=== PATIENT | male | born 1980 | race Caucasian/White ===

== ENCOUNTER 2017-06-04 20:53 | Emergency (ER) | payer OTHER ==
--- NOTE | 2017-06-04 21:04 | EDM.PDOC ---
ED HPI GENERAL MEDICAL PROBLEM - General Chief Complaint: General Stated Complaint: ALLERGIC REACTION TO MEDICATION Time Seen by Provider: 06/04/17 21:03 Source of Information: Reports: Patient History Limitations: Reports: No Limitations - History of Present Illness INITIAL COMMENTS - FREE TEXT/NARRATIVE: HISTORY AND PHYSICAL: History of present illness: Patient is a 37-year-old male who presents to the emergency room today with complaints of headache, decreased ability to concentrate, dry mouth, feeling "off" since starting a new medication, Venlafaxin 75mg once daily. This is a new medication to him and had not previously taken any antidepressants. Take this medication at around 8 AM. He did state he missed lunch and since that time had started to have the symptoms. He denies any fever, chills, chest pain or shortness of breath. Denies any abdominal pain, nausea, vomiting or diarrhea/constipation. Denies any alcohol or drug abuse. Review of systems: As per history of present illness and below otherwise all systems reviewed and negative. Past medical history: As per history of present illness and as reviewed below otherwise noncontributory. Surgical history: As per history of present illness and as reviewed below otherwise noncontributory. Social history: No reported history of drug or alcohol abuse. Family history: As per history of present illness and as reviewed below otherwise noncontributory. Physical exam: General: Well-developed and well-nourished 37-year-old male. Alert and oriented. Nontoxic appearing and in no acute distress. HEENT: Atraumatic, normocephalic, pupils equal and reactive bilaterally, negative for conjunctival pallor or scleral icterus, mucous membranes moist, throat clear, neck supple, nontender, trachea midline. No drooling or trismus noted. No meningeal signs Lungs: Clear to auscultation, breath sounds equal bilaterally, chest nontender. Heart: S1S2, regular rate and rhythm without overt murmur Abdomen: Soft, nondistended, nontender. Negative for masses or hepatosplenomegaly. Negative for costovertebral tenderness. Pelvis: Stable nontender. Genitourinary: Deferred. Rectal: Deferred. Skin: Intact, warm, dry. No lesions or rashes noted. Extremities: Atraumatic, negative for cords or calf pain. Neurovascular unremarkable. Neuro: Awake, alert, oriented. Cranial nerves II through XII unremarkable. Cerebellum unremarkable. Motor and sensory unremarkable throughout. Exam nonfocal. Notes: GCS 15, NIH 0. We did discuss risks versus benefits of doing a head CT. They declined at this time as he had had no recent injury, trauma or falls. Give him some IV fluids and medications for his migraine. States his headache has improved but he still has blurred vision and a "strange feeling in his head". He states he would like the head CT at this time. Lab work and head CT are normal. This was shared with the patient. Encouraged appropriate follow-up with his primary provider. Encouraged him to hold his Venlafaxin medication until he speaks with them. He voices understanding and agreeable to plan of care. They deny any further questions at this time. Diagnostics: CBC, CMP Therapeutics: IV fluid, Zofran, Toradol Impression: Adverse drug reaction Plan: 1. Please hold your Venlafaxin until you discuss your medication options with your primary care provider. 2. Follow up with your primary care provider as needed. Return to the ED as needed and as discussed. Definitive disposition and diagnosis as appropriate pending reevaluation and review of above. Onset: Today Duration: Hour(s): Location: Reports: Generalized Headache Pain Score (Numeric/FACES): 3 - Related Data Allergies Allergy/AdvReac Type Severity Reaction Status Date / Time Penicillins Allergy Rash Verified 06/04/17 21:05 Home Meds: Home Meds Venlafaxine HCl [Venlafaxine ER] 75 mg PO DAILY 06/04/17 [History] Past Medical History - Past Health History Medical/Surgical History: Denies Medical/Surgical History HEENT History: Reports: None Cardiovascular History: Reports: None Respiratory History: Reports: None Other Respiratory History: occasional smoker Gastrointestinal History: Reports: None Genitourinary History: Reports: Other (See Below) Other Genitourinary History: possible prostitis. left hydrocoele Endocrine/Metabolic History: Reports: Obesity/BMI 30+ Immunologic History: Reports: None Oncologic (Cancer) History: Reports: None - Infectious Disease History Infectious Disease History: Reports: None - Past Surgical History Head Surgeries/Procedures: Reports: None Social & Family History - Tobacco Use Smoking Status *Q: Current Some Day Smoker Years of Tobacco use: 15 Month/Year Tobacco Last Used: states a pack of cigarettes will last him 3 to 4 weeks Second Hand Smoke Exposure: No - Alcohol Use Days Per Week of Alcohol Use: 0 - Recreational Drug Use Recreational Drug Use: No ED ROS GENERAL - Review of Systems Review Of Systems: ROS reveals no pertinent complaints other than HPI. ED EXAM, GENERAL - Physical Exam Exam: See Below (See dictation) Course - Vital Signs Last Recorded V/S: Last Vital Signs Temp 98.2 F 06/04/17 21:01 Pulse 102 H 06/04/17 21:01 Resp 18 06/04/17 21:01 BP 155/99 H 06/04/17 21:01 Pulse Ox 97 06/04/17 21:01 - Orders/Labs/Meds Orders: Active Orders 24 hr Category Date Time Status Communication Order [RC] STAT Care 06/04/17 21:40 Active Head wo Cont [CT] Stat Exams 06/04/17 21:51 Ordered COMPREHENSIVE METABOLIC PN,CMP [CHEM] Stat Lab 06/04/17 21:28 Received Sodium Chloride 0.9% [Normal Saline] 1,000 ml Med 06/04/17 21:20 Active IV STAT Medication Orders Sodium Chloride (Normal Saline) 1,000 mls @ 999 mls/hr IV STAT ONE Stop: 06/04/17 22:20 Last Admin: 06/04/17 21:33 Dose: 999 mls/hr Labs: Laboratory Tests 06/04/17 Range/Units 21:28 WBC 7.81 (4.0-11.0) K/uL RBC 4.88 (4.50-5.90) M/uL Hgb 16.0 (13.0-17.0) g/dL Hct 44.1 (38.0-50.0) % MCV 90.4 (80.0-98.0) fL MCH 32.8 H (27.0-32.0) pg MCHC 36.3 (31.0-37.0) g/dL RDW Std Deviation 40.7 (28.0-62.0) fl RDW Coeff of Asa 12 (11.0-15.0) % Plt Count 191 (150-400) K/uL MPV 9.60 (7.40-12.00) fL Neut % (Auto) 49.6 (48.0-80.0) % Lymph % (Auto) 39.4 (16.0-40.0) % [place] % (Auto) 8.5 (0.0-15.0) % Eos % (Auto) 2.2 (0.0-7.0) % Baso % (Auto) 0.3 (0.0-1.5) % Neut # (Auto) 3.9 (1.4-5.7) K/uL Lymph # (Auto) 3.1 H (0.6-2.4) K/uL [place] # (Auto) 0.7 (0.0-0.8) K/uL Eos # (Auto) 0.2 (0.0-0.7) K/uL Baso # (Auto) 0.0 (0.0-0.1) K/uL Nucleated RBC % 0.0 /100WBC Nucleated RBCs # 0 K/uL Meds: Medications Generic Name Dose Route Start Last Admin Trade Name Freq PRN Reason Stop Dose Admin Sodium Chloride 1,000 mls @ 999 mls/hr 06/04/17 21:20 06/04/17 21:33 Normal Saline IV 06/04/17 22:20 999 mls/hr STAT ONE Administration Discontinued Medications Generic Name Dose Route Start Last Admin Trade Name Freq PRN Reason Stop Dose Admin Ketorolac Tromethamine 30 mg 06/04/17 21:20 06/04/17 21:34 Toradol IVPUSH 06/04/17 21:21 30 mg ONETIME ONE Administration Ondansetron HCl 4 mg 06/04/17 21:20 06/04/17 21:34 Zofran IVPUSH 06/04/17 21:21 4 mg ONETIME ONE Administration Departure - Departure Time of Disposition: 21:27 Disposition: Home, Self-Care 01 Clinical Impression: Adverse drug reaction Qualifiers: Encounter type: initial encounter Qualified Code(s): T88.7XXA - Unspecified adverse effect of drug or medicament, initial encounter - Discharge Information Referrals: PCP,None [Primary Care Provider] - Forms: ED Department Discharge Additional Instructions: The following information is given to patients seen in the emergency department who are being discharged to home. This information is to outline your options for follow-up care. We provide all patients seen in our emergency department with a follow-up referral. The need for follow-up, as well as the timing and circumstances, are variable depending upon the specifics of your emergency department visit. If you don't have a primary care physician on staff, we will provide you with a referral. We always advise you to contact your personal physician following an emergency department visit to inform them of the circumstance of the visit and for follow-up with them and/or the need for any referrals to a consulting specialist. The emergency department will also refer you to a specialist when appropriate. This referral assures that you have the opportunity for follow-up care with a specialist. All of these measure are taken in an effort to provide you with optimal care, which includes your follow-up. Under all circumstances we always encourage you to contact your private physician who remains a resource for coordinating your care. When calling for follow-up care, please make the office aware that this follow-up is from your recent emergency room visit. If for any reason you are refused follow-up, please contact the [facility] at and asked to speak to the emergency department charge nurse. [facility] [address] [place] [id number] 1. Please hold your Venlafaxin until you discuss your medication options with your primary care provider. 2. Follow up with your primary care provider as needed. Return to the ED as needed and as discussed. - My Orders Last 24 Hours: My Active Orders 06/04/17 21:20 Sodium Chloride 0.9% [Normal Saline] 1,000 ml IV STAT 06/04/17 21:28 COMPREHENSIVE METABOLIC PN,CMP [CHEM] Stat 06/04/17 21:40 Communication Order [RC] STAT 06/04/17 21:51 Head wo Cont [CT] Stat - Assessment/Plan Last 24 Hours: My Active Orders 06/04/17 21:20 Sodium Chloride 0.9% [Normal Saline] 1,000 ml IV STAT 06/04/17 21:28 COMPREHENSIVE METABOLIC PN,CMP [CHEM] Stat 06/04/17 21:40 Communication Order [RC] STAT 06/04/17 21:51 Head wo Cont [CT] Stat
[2017-06-04] MEDS ORDERED: Ketorolac 30 MG/ML SDV IVPUSH ONE (21:20)
[2017-06-04] MEDS ORDERED: Sodium Chloride 0.9% 1,000 ML IV ONE (21:20)
[2017-06-04] MEDS ORDERED: Ondansetron 4 MG/2 ML SDV IVPUSH ONE (21:20)
[2017-06-04 21:59] LABS: CHLORIDE,CL 105 mmol/L (98-107); SODIUM,NA 140 mmol/L (136-148)
[2017-06-04 23:02] VITALS: BP 128/80
--- NOTE | 2017-06-05 16:04 | CT ---
EXAM DATE: 06/04/17 PATIENT'S AGE: 37 Patient: NAYANA RAINEY Facility: [place], [place] Site . Site : 1980 Study: CT Head WO CONT [id number] 10:14:00 PM Ordering Physician: Doctor Ruiz Final Report: INDICATION: Headache, weakness. Blurred vision. TECHNIQUE: CT head without i.v. contrast. COMPARISON: None FINDINGS: CSF spaces: Within normal limits for age. Brain parenchyma: The brain parenchyma is normal in appearance with preservation of the cleveland-white differentiation. No sign of mass, hemorrhage, or midline shift seen. Skull base and calvarium: The visualized paranasal sinuses are well aerated. The mastoid air cells are clear. The visualized orbits are grossly unremarkable. No skull fractures are seen. IMPRESSION: 1. No evidence of acute infarction, intracranial hemorrhage, or mass effect seen. Dictated by Diego Ray MD @ 06/04/2017 10:19:55 PM Please note that all CT scans at this facility use dose modulation, iterative reconstruction, and/or weight-based dosing when appropriate to reduce radiation dose to as low as reasonably achievable. Dictated by: Diego Ray MD @ 06/04/2017 22:20:05 (Electronic Signature) Report Signed by Proxy. [facility] C[facility]ERNirav
== END 2017-06-04 22:59 | disposition home or self-care (01) ==
LOC: MW.ED 20:53
DX: G44.40 Drug-induced headache, not elsewhere classified, not intractable (principal); T43.215A Adverse effect of selective serotonin and norepinephrine reuptake inhibitors, initial encounter; F17.210 Nicotine dependence, cigarettes, uncomplicated
CPT/HCPCS: 36415; 70450; 80053; 85025; 96361; 96374; 96375; 99284; J1885; J2405; J7040

== ENCOUNTER 2017-09-29 14:49 | Emergency (ER) | payer OTHER ==
[2017-09-29] MEDS ORDERED: Sodium Chloride 0.9% 10 ML Syringe FLUSH PRN (15:04)
[2017-09-29] MEDS ORDERED: Sodium Chloride 0.9% 2.5 ML Syringe FLUSH PRN (15:04)
[2017-09-29] MEDS ORDERED: Sodium Chloride 0.9% 1,000 ML IV ONE (15:04)
--- NOTE | 2017-09-29 15:17 | EDM.PDOC ---
ED HPI GENERAL MEDICAL PROBLEM - General Chief Complaint: Cardiovascular Problem Stated Complaint: ANEXITY ATTACK Time Seen by Provider: 09/29/17 15:06 Source of Information: Reports: Patient History Limitations: Reports: No Limitations - History of Present Illness INITIAL COMMENTS - FREE TEXT/NARRATIVE: HISTORY AND PHYSICAL: History of present illness: Patient is a 37-year-old male here with complaint of anxiety and chest pain. He states that he has had 3 anxiety attacks since last night. He reports the last one was 2 hours ago. He states he feels chest tightness/pain, short of breath, tingling in his arms, and nauseous when they occur. He reports he is still having some chest pain at this time, pain is in the middle of his chest. He has a history of anxiety and PTSD and is on hydroxyzine and wellbutrin. He states his father unexpectedly recently and his anxiety has been worse since then. He states he is constantly shaking and always have an impending fear of . Patient also thinks he has a sinus infection. States he has a lot of pressure in his cheeks and forehead and nasal congestion x 10 weeks. He denies any fever or chills. Review of systems: As per history of present illness and below otherwise all systems reviewed and negative. Past medical history: As per history of present illness and as reviewed below otherwise noncontributory. Surgical history: As per history of present illness and as reviewed below otherwise noncontributory. Social history: No reported history of drug or alcohol abuse. Family history: As per history of present illness and as reviewed below otherwise noncontributory. Physical exam: General: patient sitting comfortably in on acute distress. HEENT: Tenderness to palpation of maxillary sinuses. Atraumatic, normocephalic, pupils reactive, negative for conjunctival pallor or scleral icterus, mucous membranes moist, throat clear, neck supple, nontender, trachea midline. Lungs: Clear to auscultation, breath sounds equal bilaterally, chest nontender. Heart: S1S2, regular, negative for clicks, rubs, or JVD. Abdomen: Soft, nondistended, nontender. Negative for masses or hepatosplenomegaly. Negative for costovertebral tenderness. Pelvis: Stable nontender. Genitourinary: Deferred. Rectal: Deferred. Extremities: Atraumatic, negative for cords or calf pain. Neurovascular unremarkable. Neuro: Awake, alert, oriented. Cranial nerves II through XII unremarkable. Cerebellum unremarkable. Motor and sensory unremarkable throughout. Exam nonfocal. Notes: Patient states he feels 100% better have receiving ativan Diagnostics: CBC, CMP, Troponin, UA EKG Patient declined chest x-ray Therapeutics: 1L Normal saline 1mg ativan IV Impression: Anxiety Acute sinusitis Plan: 1. Take ativan as needed for severe anxiety and doxycycline for sinusitis 2. Follow up with primary care provider and keep appointment with [facility] 3. Return to ED as needed as discussed Definitive disposition and diagnosis as appropriate pending reevaluation and review of above. chest Pain Score (Numeric/FACES): 3 - Related Data Allergies Allergy/AdvReac Type Severity Reaction Status Date / Time Penicillins Allergy Rash Verified 09/29/17 14:54 Home Meds: Home Meds buPROPion [buPROPion XL] 150 mg PO 09/29/17 [History] Past Medical History - Past Health History Medical/Surgical History: Denies Medical/Surgical History HEENT History: Reports: None Cardiovascular History: Reports: None Respiratory History: Reports: None Other Respiratory History: occasional smoker Gastrointestinal History: Reports: None Genitourinary History: Reports: Other (See Below) Other Genitourinary History: possible prostitis. left hydrocoele Musculoskeletal History: Reports: None Neurological History: Reports: None Psychiatric History: Reports: Depression, PTSD Endocrine/Metabolic History: Reports: Obesity/BMI 30+ Hematologic History: Reports: None Immunologic History: Reports: None Oncologic (Cancer) History: Reports: None Dermatologic History: Reports: None - Infectious Disease History Infectious Disease History: Reports: None - Past Surgical History Head Surgeries/Procedures: Reports: None Social & Family History - Caffeine Use Caffeine Use: Reports: Coffee ED ROS GENERAL - Review of Systems Review Of Systems: ROS reveals no pertinent complaints other than HPI. ED EXAM, GENERAL - Physical Exam Exam: See Below (see dictation) Course - Vital Signs Last Recorded V/S: Last Vital Signs Temp 36.8 C 09/29/17 14:59 Pulse 108 H 09/29/17 14:59 Resp 17 09/29/17 14:59 BP 184/97 H 09/29/17 14:59 Pulse Ox 99 09/29/17 14:59 - Orders/Labs/Meds Orders: Active Orders 24 hr Category Date Time Status EKG Documentation Completion [RC] STAT Care 09/29/17 15:04 Active Pulse Oximetry [RC] ASDIRECTED Care 09/29/17 15:04 Active Sodium Chloride 0.9% [Saline Flush] Med 09/29/17 15:04 Active 10 ml FLUSH ASDIRECTED PRN Sodium Chloride 0.9% [Saline Flush] Med 09/29/17 15:04 Active 2.5 ml FLUSH ASDIRECTED PRN Saline Lock Insert [OM.PC] Stat Oth 09/29/17 15:04 Ordered Medication Orders Sodium Chloride (Saline Flush) 10 ml FLUSH ASDIRECTED PRN PRN Reason: Keep Vein Open Last Admin: 09/29/17 15:22 Dose: 10 ml Sodium Chloride (Saline Flush) 2.5 ml FLUSH ASDIRECTED PRN PRN Reason: Keep Vein Open Last Admin: 09/29/17 15:22 Dose: 2.5 ml Labs: Laboratory Tests 09/29/17 09/29/17 09/29/17 Range/Units 15:15 15:15 15:15 WBC 7.04 (4.0-11.0) K/uL RBC 4.98 (4.50-5.90) M/uL Hgb 16.4 (13.0-17.0) g/dL Hct 45.0 (38.0-50.0) % MCV 90.4 (80.0-98.0) fL MCH 32.9 H (27.0-32.0) pg MCHC 36.4 (31.0-37.0) g/dL RDW Std Deviation 40.1 (28.0-62.0) fl RDW Coeff of Asa 12 (11.0-15.0) % Plt Count 215 (150-400) K/uL MPV 9.60 (7.40-12.00) fL Neut % (Auto) 61.4 (48.0-80.0) % Lymph % (Auto) 31.3 (16.0-40.0) % [place] % (Auto) 6.8 (0.0-15.0) % Eos % (Auto) 0.4 (0.0-7.0) % Baso % (Auto) 0.1 (0.0-1.5) % Neut # (Auto) 4.3 (1.4-5.7) K/uL Lymph # (Auto) 2.2 (0.6-2.4) K/uL [place] # (Auto) 0.5 (0.0-0.8) K/uL Eos # (Auto) 0.0 (0.0-0.7) K/uL Baso # (Auto) 0.0 (0.0-0.1) K/uL Nucleated RBC % 0.0 /100WBC Nucleated RBCs # 0 K/uL INR 1.10 Sodium 141 (136-148) mmol/L Potassium 3.5 (3.5-5.1) mmol/L Chloride 103 (98-107) mmol/L Carbon Dioxide 27.0 (21.0-32.0) mmol/L BUN 15 (7.0-18.0) mg/dL Creatinine 1.1 (0.8-1.3) mg/dL Est Cr Clr Drug Dosing 90.16 mL/min Estimated GFR (MDRD) > 60.0 ml/min Glucose 106 (74-106) mg/dL Calcium 9.7 (8.5-10.1) mg/dL Total Bilirubin 0.9 (0.2-1.0) mg/dL AST 20 (15-37) IU/L ALT 37 (14-63) IU/L Alkaline Phosphatase 58 (46-116) U/L Troponin I < 0.050 (0.000-0.056) ng/mL Total Protein 8.2 (6.4-8.2) g/dL Albumin 4.4 (3.4-5.0) g/dL Globulin 3.8 H (2.0-3.5) g/dL Albumin/Globulin Ratio 1.2 L (1.3-2.8) Lipase 145 (73-393) U/L Meds: Medications Generic Name Dose Route Start Last Admin Trade Name Freq PRN Reason Stop Dose Admin Sodium Chloride 10 ml 09/29/17 15:04 09/29/17 15:22 Saline Flush FLUSH 10 ml ASDIRECTED PRN Administration Keep Vein Open Sodium Chloride 2.5 ml 09/29/17 15:04 09/29/17 15:22 Saline Flush FLUSH 2.5 ml ASDIRECTED PRN Administration Keep Vein Open Discontinued Medications Generic Name Dose Route Start Last Admin Trade Name Freq PRN Reason Stop Dose Admin Sodium Chloride 1,000 mls @ 999 mls/hr 09/29/17 15:04 09/29/17 15:22 Normal Saline IV 09/29/17 16:04 999 mls/hr BOLUS ONE Administration Lorazepam 1 mg 09/29/17 15:24 09/29/17 15:53 Ativan IVPUSH 09/29/17 15:25 1 mg ONETIME ONE Administration Departure - Departure Time of Disposition: 16:54 Disposition: Home, Self-Care 01 Condition: Good Clinical Impression: Anxiety, Sinusitis, acute Referrals: PCP,None [Primary Care Provider] - Forms: ED Department Discharge Additional Instructions: The following information is given to patients seen in the emergency department who are being discharged to home. This information is to outline your options for follow-up care. We provide all patients seen in our emergency department with a follow-up referral. The need for follow-up, as well as the timing and circumstances, are variable depending upon the specifics of your emergency department visit. If you don't have a primary care physician on staff, we will provide you with a referral. We always advise you to contact your personal physician following an emergency department visit to inform them of the circumstance of the visit and for follow-up with them and/or the need for any referrals to a consulting specialist. The emergency department will also refer you to a specialist when appropriate. This referral assures that you have the opportunity for follow-up care with a specialist. All of these measure are taken in an effort to provide you with optimal care, which includes your follow-up. Under all circumstances we always encourage you to contact your private physician who remains a resource for coordinating your care. When calling for follow-up care, please make the office aware that this follow-up is from your recent emergency room visit. If for any reason you are refused follow-up, please contact the [facility] at and asked to speak to the emergency department charge nurse. [facility] [address], [place] [address] [address] 1. Take ativan as needed for severe anxiety and doxycycline for sinusitis 2. Follow up with primary care provider and keep appointment with [facility] 3. Return to ED as needed as discussed - My Orders Last 24 Hours: My Active Orders 09/29/17 15:04 EKG Documentation Completion [RC] STAT Pulse Oximetry [RC] ASDIRECTED Sodium Chloride 0.9% [Saline Flush] 10 ml FLUSH ASDIRECTED PRN Sodium Chloride 0.9% [Saline Flush] 2.5 ml FLUSH ASDIRECTED PRN Saline Lock Insert [OM.PC] Stat - Assessment/Plan Last 24 Hours: My Active Orders 09/29/17 15:04 EKG Documentation Completion [RC] STAT Pulse Oximetry [RC] ASDIRECTED Sodium Chloride 0.9% [Saline Flush] 10 ml FLUSH ASDIRECTED PRN Sodium Chloride 0.9% [Saline Flush] 2.5 ml FLUSH ASDIRECTED PRN Saline Lock Insert [OM.PC] Stat
[2017-09-29] MEDS ORDERED: LORazepam 2 MG/ML SDV IVPUSH ONE (15:24)
[2017-09-29 16:07] LABS: CHLORIDE,CL 103 mmol/L (98-107); SODIUM,NA 141 mmol/L (136-148)
[2017-09-29 17:10] VITALS: BP 133/85
== END 2017-09-29 17:04 | disposition home or self-care (01) ==
LOC: MW.ED 14:49
DX: F41.9 Anxiety disorder, unspecified (principal); J01.00 Acute maxillary sinusitis, unspecified; R07.9 Chest pain, unspecified; Z88.0 Allergy status to penicillin
CPT/HCPCS: 80053; 83690; 84484; 85025; 85610; 93005; 96361; 96374; 99285; J2060; J7040; 99283

== ENCOUNTER 2018-09-15 09:26 | Day surgery (SDC) | payer OTHER ==
[~2018-09-15 09:26] MED LIST: Lactated Ringers 1,000 ML IV SCH
[2018-09-15] MEDS ORDERED: Propofol 200 MG/20 ML SDV ONE ×2 (10:40→11:40)
[2018-09-15] MEDS ORDERED: Lidocaine 2% 5 ML SDV ONE (10:40)
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
[2018-09-15] MEDS ORDERED: fentaNYL 100 MCG/2 ML SDV ONE (11:06)
--- NOTE | 2018-09-15 12:06 | PCM.OPNOTE ---
- General Post-Op/Procedure Note Date of Surgery/Procedure: 09/15/18 Operative Procedure(s): egd w bx. colonoscopy Findings: see dict [id number] Pre Op Diagnosis: gib Post-Op Diagnosis: Same Anesthesia Technique: Moderate Sedation Primary Surgeon: Alex Prado Pathology: egd bx Complications: None Condition: Good
--- NOTE | 2018-09-15 12:20 | PCM.POSTAN ---
POST ANESTHESIA ASSESSMENT - MENTAL STATUS Mental Status: Alert, Oriented - VITAL SIGNS Pulse Rate: 72 SaO2: 94 Resp Rate: 12 Blood Pressure: 123/66 - RESPIRATORY Respiratory Status: Respiratory Rate WNL, Airway Patent, O2 Saturation Stable - CARDIOVASCULAR CV Status: Pulse Rate WNL, Blood Pressure Stable - GASTROINTESTINAL GI Status: No Symptoms - PAIN Pain Score: 0 - POST OP HYDRATION Hydration Status: Adequate & Stable
[2018-09-15 12:57] VITALS: BP 123/66; PULSE 72
--- NOTE | 2018-09-15 12:57 | PCM48HPAN ---
Post Anesthesia Note - EVALUATION WITHIN 48HRS OF ANESTHETIC Vital Signs in Normal Range: Yes Patient Participated in Evaluation: Yes Respiratory Function Stable: Yes Airway Patent: Yes Cardiovascular Function Stable: Yes Hydration Status Stable: Yes Pain Control Satisfactory: Yes Nausea and Vomiting Control Satisfactory: Yes Mental Status Recovered: Yes Pulse Rate: 72 Resp Rate: 16 Blood Pressure: 123/66 - COMMENTS/OBSERVATIONS Free Text/Narrative:: no anesthesia problems
--- NOTE | 2018-09-15 13:37 | OR ---
SURGEON: Alex Prado MD DATE OF PROCEDURE: 09/15/2018 PREOPERATIVE DIAGNOSIS: Bright red blood per rectum. POSTOPERATIVE DIAGNOSES: Esophagogastroduodenoscopy diagnoses are esophagitis and acid reflux and gastric polyp and possible healed gastric ulcer and hiatal hernia. Colonoscopy diagnosis is internal hemorrhoid. PROCEDURES PERFORMED: Esophagogastroduodenoscopy with biopsy. Colonoscopy. DESCRIPTION OF PROCEDURE: EGD: The patient was taken to the endoscopy room, and with the ALIGNER, Diprivan was administered. A well-lubricated EGD scope was gently inserted through the oropharynx, down the esophagus, passing through the gastroesophageal junction, into the stomach. The mucosa was examined upon the passage. Any etiology will be noted. Once in the stomach, we continued to advance to the distal antrum, passed through the pylorus into the second portion of the duodenum. Again, the mucosa was examined for any abnormality and etiology. The scope was then retrieved back to the stomach and then retroflexed to look at the fundus of the stomach. If a biopsy was indicated, we will biopsy the antrum, body, and gastroesophageal junction. The air will be sucked out while the scope is retrieved to reduce the patient's discomfort. The patient tolerated the procedure well. There were no intraoperative complications. Dr. Prado was present through the whole procedure. Prior to surgery, a time-out had been called, the patient identified, procedure identified and antibiotic administered. The patient was taken to the endoscopy room. A time out was called, patient identified, and procedure identified. Diprivan was then administrated. Patient went from awake to sleep, hearing doctor talking or door closing is normal. Perineum inspection and digital examination were then performed. A well- lubricated colonoscope was gently inserted through the rectum, advanced past the rectosigmoid junction, the descending colon, splenic flexure, transverse colon, hepatic flexure, ascending colon, arrived to the cecum. Cecum was identified as dictated in the finding. Then the scope was carefully withdrawn while attention was paid to the mucosal surface for any abnormality. Air will be sucked out during the scope withdrawal. At the rectum, retroflexed to examine any rectal diseases, fistula or hemorrhoids. Patient tolerated procedure well. There were no intraoperative complications, and Dr. Prado was present throughout the whole procedure. FINDINGS: EGD findings: 1. The patient is easily sedated with ALIGNER and Diprivan, the patient is soundly snoring. 2. Oropharynx and proximal esophagus are free of disease. At mid esophagus at distance 30, I see a spot of salmon-colored change and then at distal esophagus at distance 35 has moderate salmon-colored change, suggests almost like a skip lesion, concerned about Albarran's. Stomach rugae are normal in appearance. Antrum is a little bit inflamed and there is a small polyp at antrum about a size of 3 mm. Duodenum was grossly normal. Retroflexed look at the fundus of the stomach, the patient has a hiatal hernia. Biopsy done at antrum, body, and GE junction at 40 and also GE junction at 30 and then sucked out the gas while scope pulling out. Colonoscopy findings: 1. The patient is easily sedated with ALIGNER and Diprivan, the patient is soundly snoring. 2. Bowel prep is average with some opaque liquid stool, no semi-formed stool. 3. Colon rather straightforward. Cecum indicated by ileocecal fold, one-to- one indentation, and appendiceal orifice. Light emittance is not observed and the ScopeGuide is pointing south. Mucosa examined upon scope pulling out with some irrigation. The patient does not have polyp, mass, diverticulosis, bleeding, ulceration, AV malformation, none of those. No black stool either. The patient has mild internal hemorrhoid, no external hemorrhoid. The patient would benefit from repeat colonoscopy 10 years from today or if clinically indicated otherwise. The patient should benefit from repeat EGD in 6 months and possible start of PPI if he has not already done so. HAKEEM / JITENDRA /[id number]
== END 2018-09-15 13:15 | disposition home or self-care (01) ==
LOC: MW.SDS 09:26
PROVIDERS: ATTEND Surgery
DX: K29.51 Unspecified chronic gastritis with bleeding (principal); K21.0 Gastro-esophageal reflux disease with esophagitis; K22.70 Barrett's esophagus without dysplasia; K31.7 Polyp of stomach and duodenum; K44.9 Diaphragmatic hernia without obstruction or gangrene; K31.89 Other diseases of stomach and duodenum; K64.8 Other hemorrhoids; R19.4 Change in bowel habit; I10 Essential (primary) hypertension; F41.9 Anxiety disorder, unspecified; F32.9 Major depressive disorder, single episode, unspecified; Z88.0 Allergy status to penicillin; Z88.8 Allergy status to other drugs, medicaments and biological substances; Z87.891 Personal history of nicotine dependence; Z79.899 Other long term (current) drug therapy
CPT/HCPCS: 43239; 45378; J2001; J2704; J3010; J7120; 00813; 88305; 88312

== ENCOUNTER 2018-11-09 03:10 | Emergency (ER) | payer SELFPAY ==
[2018-11-09] MEDS ORDERED: Sodium Chloride 0.9% 2.5 ML Syringe FLUSH PRN (03:32)
[2018-11-09] MEDS ORDERED: Sodium Chloride 0.9% 10 ML Syringe FLUSH PRN (03:32)
[2018-11-09] MEDS ORDERED: Sodium Chloride 0.9% 1,000 ML IV ONE (03:36)
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
--- NOTE | 2018-11-09 04:15 | CR ---
INDICATION: Chest pain TECHNIQUE: Chest 1 views COMPARISON: Chest x-ray 01/28/2018 FINDINGS: Cardiovascular and mediastinum: Heart size and vasculature are normal in caliber and appearance. Lungs and pleural spaces: Lungs are clear. No sign of infiltrate or mass. No sign of pleural effusion. No pneumothorax. Bones and soft tissues: No significant findings. IMPRESSION: No acute findings and no significant changes from the prior exam. Dictated by Evelio Noble MD @ Nov 09 2018 4:12AM Signed by Dr. Evelio Noble @ Nov 09 2018 4:13AM
[2018-11-09 04:20] VITALS: BP 146/94; PULSE 99
[2018-11-09 04:20] LABS: BLOOD UREA NITROGEN,BUN 13 mg/dL (7.0-18.0); CARBON DIOXIDE,CO2 21.2 mmol/L (21.0-32.0); CHLORIDE,CL 102 mmol/L (98-107); GLUCOSE RANDOM 123 mg/dL (74-106); POTASSIUM,K 3.7 mmol/L (3.5-5.1); SODIUM,NA 139 mmol/L (136-148)
== END 2018-11-09 05:10 | disposition home or self-care (01) ==
LOC: MW.ED 03:10
DX: R07.89 Other chest pain (principal); F19.10 Other psychoactive substance abuse, uncomplicated; I10 Essential (primary) hypertension; K21.9 Gastro-esophageal reflux disease without esophagitis; F41.9 Anxiety disorder, unspecified; F32.9 Major depressive disorder, single episode, unspecified; E66.9 Obesity, unspecified; Z68.35 Body mass index [BMI] 35.0-35.9, adult; Z88.0 Allergy status to penicillin; Z88.8 Allergy status to other drugs, medicaments and biological substances; Z79.899 Other long term (current) drug therapy
CPT/HCPCS: 36415; 71045; 80053; 84484; 85025; 85610; 93005; 96360; 99285; J7040; 99284

== ENCOUNTER 2019-01-06 05:19 | Emergency (ER) | payer OTHER ==
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
--- NOTE | 2019-01-06 06:56 | CR ---
INDICATION: Pain and shortness of breath. TECHNIQUE: AP portable chest x-ray. COMPARISON: 11/09/2018. FINDINGS: Shallow inspiration. Heart size normal. Small amount of soft tissue convexity and air density in the midline and left lower chest. I suspect this is a hiatal hernia rather than other density. This is stable. Minimal linear atelectasis or scarring right lung base. No focal dense infiltrate or consolidation either lung. Chest otherwise unremarkable. Dictated by Rodney Ortiz MD @ Jan 06 2019 6:53AM Signed by Dr. Rodney Ortiz @ Jan 06 2019 6:56AM
[2019-01-06 07:03] VITALS: PULSE 63
[2019-01-06 07:08] VITALS: BP 173/94
== END 2019-01-06 07:13 | disposition home or self-care (01) ==
LOC: MW.ED 05:19
DX: R07.89 Other chest pain (principal); F41.9 Anxiety disorder, unspecified; I10 Essential (primary) hypertension; F32.9 Major depressive disorder, single episode, unspecified; K21.9 Gastro-esophageal reflux disease without esophagitis; Z88.0 Allergy status to penicillin; Z88.8 Allergy status to other drugs, medicaments and biological substances; Z79.899 Other long term (current) drug therapy; Z87.891 Personal history of nicotine dependence
CPT/HCPCS: 71045; 71045-26; 93005; 99285-25

== ENCOUNTER 2019-02-15 04:29 | Emergency (ER) | payer OTHER, SELFPAY ==
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
[2019-02-15] MEDS ORDERED: Ondansetron 4 MG/2 ML SDV IVPUSH ONE (04:43)
[2019-02-15] MEDS ORDERED: LORazepam 2 MG/ML SDV IVPUSH ONE (04:43)
[2019-02-15] MEDS ORDERED: MVI, Adult with Vitamin K 10 ML, Thiamine 100 MG, Folic Acid 1 MG in Sodium Chloride 0.... IV ONE ×4 (04:43)
[2019-02-15] MEDS ORDERED: Magnesium Sulfate/Water 2 GM in Premix Bag 1 BAG IV ONE (04:45)
[2019-02-15] MEDS ORDERED: Magnesium Sulfate/Water 50 ML ONE (04:59)
[2019-02-15 05:16] LABS: BLOOD UREA NITROGEN,BUN 10 mg/dL (7.0-18.0); CARBON DIOXIDE,CO2 25.2 mmol/L (21.0-32.0); CHLORIDE,CL 102 mmol/L (98-107); GLUCOSE RANDOM 109 mg/dL (74-106); POTASSIUM,K 4.3 mmol/L (3.5-5.1); SODIUM,NA 138 mmol/L (136-148)
[2019-02-15] MEDS ORDERED: Sodium Chloride 0.9% 1,000 ML IV ONE (06:01)
[2019-02-15] MEDS ORDERED: Sodium Chloride 0.9% 1,000 ML IV SCH (06:15)
[2019-02-15 07:32] VITALS: BP 160/99; PULSE 84
== END 2019-02-15 07:32 | disposition home or self-care (01) ==
LOC: MW.ED 04:29
DX: E86.0 Dehydration (principal); F10.180 Alcohol abuse with alcohol-induced anxiety disorder; Y90.0 Blood alcohol level of less than 20 mg/100 ml; Z88.0 Allergy status to penicillin; Z88.8 Allergy status to other drugs, medicaments and biological substances; Z79.899 Other long term (current) drug therapy
CPT/HCPCS: 36415; 80053; 80320; 85025; 96365; 96367; 96375; 99284; J2060; J2405; J3411; J3475; J7030; 99283; G0480

== ENCOUNTER 2019-04-25 18:47 | Emergency (ER) | payer OTHER ==
[2019-04-25] MEDS ORDERED: Sodium Chloride 0.9% 1,000 ML IV ONE (19:49)
[2019-04-25] MEDS ORDERED: LORazepam 1 MG Tab PO ONE (19:51)
[2019-04-25] MEDS ORDERED: ALPRAZolam 0.5 MG Tab PO ONE (19:57)
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
[2019-04-25 21:16] VITALS: BP 150/79; PULSE 106
== END 2019-04-25 21:10 | disposition home or self-care (01) ==
LOC: MW.ED 18:47
DX: F19.10 Other psychoactive substance abuse, uncomplicated (principal); I10 Essential (primary) hypertension; K21.9 Gastro-esophageal reflux disease without esophagitis; F41.9 Anxiety disorder, unspecified; F32.9 Major depressive disorder, single episode, unspecified; E66.9 Obesity, unspecified; Z88.0 Allergy status to penicillin; Z88.8 Allergy status to other drugs, medicaments and biological substances; Z79.899 Other long term (current) drug therapy; Z68.37 Body mass index [BMI] 37.0-37.9, adult
CPT/HCPCS: 96360; 99284; A9270; J7030

== ENCOUNTER 2019-07-08 09:27 | Day surgery (SDC) | payer OTHER ==
[2019-07-08] MEDS ORDERED: fentaNYL 100 MCG/2 ML SDV ONE (10:13)
[2019-07-08] MEDS ORDERED: Lidocaine 2% 5 ML SDV ONE (10:13)
[2019-07-08] MEDS ORDERED: Midazolam 1 MG/ML 2 ML SDV ONE (10:13)
[2019-07-08] MEDS ORDERED: Propofol 200 MG/20 ML SDV ONE (10:13)
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
--- NOTE | 2019-07-08 12:26 | PCM.OPNOTE ---
- General Post-Op/Procedure Note Date of Surgery/Procedure: 07/08/19 Operative Procedure(s): egd w bx Findings: see [id number] Pre Op Diagnosis: gastric mucosa intestinal metaplasia Post-Op Diagnosis: gastric mass Anesthesia Technique: Moderate Sedation Primary Surgeon: Alex Prado Pathology: egd bx and mass bx Complications: None Condition: Good
--- NOTE | 2019-07-08 12:29 | PCM.POSTAN ---
POST ANESTHESIA ASSESSMENT - MENTAL STATUS Mental Status: Alert, Oriented - VITAL SIGNS Vital Signs: Last Vital Signs Temp 37.1 C 07/08/19 09:55 Pulse 82 07/08/19 12:22 Resp 17 07/08/19 12:22 BP 113/79 07/08/19 12:22 Pulse Ox 92 L 07/08/19 12:22 - RESPIRATORY Respiratory Status: Respiratory Rate WNL, Airway Patent, O2 Saturation Stable - CARDIOVASCULAR CV Status: Pulse Rate WNL, Blood Pressure Stable - GASTROINTESTINAL GI Status: No Symptoms - PAIN Pain Score: 0 - POST OP HYDRATION Hydration Status: Adequate & Stable - OBSERVATIONS Free Text/Narrative:: No anesthesia problems
--- NOTE | 2019-07-08 13:37 | PCM48HPAN ---
Post Anesthesia Note - EVALUATION WITHIN 48HRS OF ANESTHETIC Vital Signs in Normal Range: Yes Patient Participated in Evaluation: Yes Respiratory Function Stable: Yes Airway Patent: Yes Cardiovascular Function Stable: Yes Hydration Status Stable: Yes Pain Control Satisfactory: Yes Nausea and Vomiting Control Satisfactory: Yes Mental Status Recovered: Yes Vital Signs: Last Vital Signs Temp 37.1 C 07/08/19 09:55 Pulse 82 07/08/19 12:22 Resp 17 07/08/19 12:22 BP 113/79 07/08/19 12:22 Pulse Ox 92 L 07/08/19 12:22
[2019-07-08 15:40] VITALS: BP 124/70; PULSE 80
--- NOTE | 2019-07-08 18:20 | OR ---
SURGEON: Alex Prado MD DATE OF PROCEDURE: 07/08/2019 PREOPERATIVE DIAGNOSIS: Gastric mucosa, intestinal metaplasia. POSTOPERATIVE DIAGNOSIS: Gastric mass. PROCEDURE PERFORMED: Esophagogastroduodenoscopy with biopsy. DESCRIPTION OF PROCEDURE: EGD: The patient was taken to the endoscopy room, and with the INVESTMENT CONSULTANT, Diprivan was administered. A well-lubricated EGD scope was gently inserted through the oropharynx, down the esophagus, passing through the gastroesophageal junction, into the stomach. The mucosa was examined upon the passage. Any etiology will be noted. Once in the stomach, we continued to advance to the distal antrum, passed through the pylorus into the second portion of the duodenum. Again, the mucosa was examined for any abnormality and etiology. The scope was then retrieved back to the stomach and then retroflexed to look at the fundus of the stomach. If a biopsy was indicated, we will biopsy the antrum, body, and gastroesophageal junction. The air will be sucked out while the scope is retrieved to reduce the patient's discomfort. The patient tolerated the procedure well. There were no intraoperative complications. Dr. Prado was present through the whole procedure. Prior to surgery, a time-out had been called, the patient identified, procedure identified and antibiotic administered. FINDINGS: 1. The patient is easily sedated with INVESTMENT CONSULTANT and Diprivan, the patient is soundly snoring. 2. Oropharynx and proximal esophagus are free of disease, stricture, or inflammation. Distal esophagus at distance 35 has a mass just distal to GE junction, around 8 to 10 mm, right at the GE junction. Very difficult to biopsy as the patient is breathing and it is moving. The patient probably will need to be intubated in order to get a good biopsy on next one. The stomach rugae are normal in appearance and antrum looks fine. There is no blood, bile, ulcer, or mass observed. Duodenum is grossly normal. Retroflexed look at the fundus of the stomach, there is no hiatal hernia. Biopsy done at antrum, body x3, then the incisura cardiac x1, and the mass x3 and sucked out the gas while scope pulling out. HAKEEM / JITENDRA /[id number] KAMARI
== END 2019-07-08 13:20 | disposition home or self-care (01) ==
LOC: MW.SDS 09:27
PROVIDERS: ATTEND Surgery
DX: K29.50 Unspecified chronic gastritis without bleeding (principal); K31.89 Other diseases of stomach and duodenum; I10 Essential (primary) hypertension; K21.9 Gastro-esophageal reflux disease without esophagitis; F41.9 Anxiety disorder, unspecified; F32.9 Major depressive disorder, single episode, unspecified; E66.9 Obesity, unspecified; Z88.0 Allergy status to penicillin; Z88.8 Allergy status to other drugs, medicaments and biological substances; Z79.899 Other long term (current) drug therapy; Z87.891 Personal history of nicotine dependence; Z68.33 Body mass index [BMI] 33.0-33.9, adult
CPT/HCPCS: 43239; J2001; J2250; J2704; J3010; J7120; 00731

== ENCOUNTER 2019-09-14 08:09 | Day surgery (SDC) | payer OTHER ==
[2019-09-14] MEDS ORDERED: Succinylcholine/Sod PF 100 MG/5 ML SYRINGE IV ONE ×2 (08:37→10:50)
[2019-09-14] MEDS ORDERED: Propofol 200 MG/20 ML SDV ONE (08:37)
[2019-09-14] MEDS ORDERED: fentaNYL 100 MCG/2 ML SDV ONE (08:37)
[2019-09-14] MEDS ORDERED: Ondansetron 4 MG/2 ML SDV ONE (08:37)
[2019-09-14] MEDS ORDERED: Lidocaine 2% 5 ML SDV ONE (08:37)
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
[2019-09-14] MEDS ORDERED: Rocuronium Bromide 50 MG/5 ML Syringe ONE (10:20)
--- NOTE | 2019-09-14 11:12 | PCM.OPNOTE ---
- General Post-Op/Procedure Note Date of Surgery/Procedure: 09/14/19 Operative Procedure(s): egd w bx Findings: see [id number] Pre Op Diagnosis: gastric mass Post-Op Diagnosis: esophageal mass Anesthesia Technique: General ET Tube Primary Surgeon: Alex Prado Pathology: 10 mm esophageal mass just above ge junction; and bx antral polyp, and body and ge junction Complications: None Condition: Good
[2019-09-14 11:25] VITALS: PULSE 65
--- NOTE | 2019-09-14 12:07 | PCM.POSTAN ---
POST ANESTHESIA ASSESSMENT - MENTAL STATUS Mental Status: Alert, Oriented - VITAL SIGNS Vital Signs: Last Vital Signs Temp 96.8 F L 09/14/19 09:41 Pulse 65 09/14/19 11:23 Resp 15 09/14/19 11:23 BP 122/74 09/14/19 11:23 Pulse Ox 92 L 09/14/19 11:23 - RESPIRATORY Respiratory Status: Respiratory Rate WNL, Airway Patent, O2 Saturation Stable - CARDIOVASCULAR CV Status: Pulse Rate WNL, Blood Pressure Stable - GASTROINTESTINAL GI Status: No Symptoms - POST OP HYDRATION Hydration Status: Adequate & Stable
--- NOTE | 2019-09-14 13:40 | OR ---
SURGEON: Alex Prado MD DATE OF PROCEDURE: 09/14/2019 PREOPERATIVE DIAGNOSIS: Gastric mass. POSTOPERATIVE DIAGNOSIS: Esophageal mass. PROCEDURE PERFORMED: Esophagogastroduodenoscopy with biopsy. PRIMARY SURGEON: Alex Prado MD COMPLICATIONS: None. DESCRIPTION OF PROCEDURE: EGD: The patient was taken to the endoscopy room, and with the STAFF PHYSICAL THERAPIST, Diprivan was administered. A well-lubricated EGD scope was gently inserted through the oropharynx, down the esophagus, passing through the gastroesophageal junction, into the stomach. The mucosa was examined upon the passage. Any etiology will be noted. Once in the stomach, we continued to advance to the distal antrum, passed through the pylorus into the second portion of the duodenum. Again, the mucosa was examined for any abnormality and etiology. The scope was then retrieved back to the stomach and then retroflexed to look at the fundus of the stomach. If a biopsy was indicated, we will biopsy the antrum, body, and gastroesophageal junction. The air will be sucked out while the scope is retrieved to reduce the patient's discomfort. The patient tolerated the procedure well. There were no intraoperative complications. Dr. Prado was present through the whole procedure. Prior to surgery, a time-out had been called, the patient identified, procedure identified and antibiotic administered. FINDINGS: 1. The patient is easily sedated with STAFF PHYSICAL THERAPIST and Diprivan, the patient is soundly snoring. 2. Oropharynx and proximal esophagus are free of disease, stricture, or inflammation. Distal esophagus at the area right at the flexion point of the GE junction, so the mass is kind of sometimes in the stomach, sometimes in the distal GE junction. My best estimate about 10 mm when you are in the stomach, retroflexed look at the fundus of stomach, you cannot really see it, so I guess probably because of esophageal mass. Stomach rugae are normal in appearance and antrum looks fine. There is no blood, bile, ulcer, or mass observed. Duodenum is grossly normal. After intubation, the patient seemed to have a small paraesophageal hiatal hernia and again the 10 mm mass is probably just right before the GE junction. The distal GE junction shows a salmon-colored change consistent with acid reflux and also just above it has some flame-like structure and also concern for Albarran. Previous biopsy does not show it. Taking multiple pictures of the mass and also took three biopsies and then biopsy of the antrum and body and GE junction and the mass. The patient also has a small polyp at antrum, which was biopsied too. During the whole study, there is no blood, ulcer, food particle, or bile observed and sucked out the gas while scope pulling out. Add: would benefit from UGI to assess esophageal mass HAKEEM / JITENDRA /[id number] [id number]
[2019-09-14 14:10] VITALS: BP 122/76
== END 2019-09-14 12:10 | disposition home or self-care (01) ==
LOC: MW.SDS 08:09
PROVIDERS: ATTEND Surgery
DX: K21.0 Gastro-esophageal reflux disease with esophagitis (principal); K22.8 Other specified diseases of esophagus; I10 Essential (primary) hypertension; F41.9 Anxiety disorder, unspecified; F32.9 Major depressive disorder, single episode, unspecified; F43.10 Post-traumatic stress disorder, unspecified; E66.9 Obesity, unspecified; F17.210 Nicotine dependence, cigarettes, uncomplicated; Z88.0 Allergy status to penicillin; Z88.8 Allergy status to other drugs, medicaments and biological substances; Z79.899 Other long term (current) drug therapy; Z98.890 Other specified postprocedural states; Z68.37 Body mass index [BMI] 37.0-37.9, adult
CPT/HCPCS: J0330; J2001; J2405; J2704; J3010; J7120

== ENCOUNTER 2020-11-09 11:42 | Emergency (ER) | payer OTHER, SELFPAY ==
[2020-11-09 12:04] VITALS: BP 134/92; PULSE 74
--- NOTE | 2020-11-13 14:44 | PCM.EKG ---
#1 Interpretation EKG Interpretation Comments: EKG 11/09/20 12:06 PM NSR HR 75 VT 165 AXIS [address] T IMPRESSION NORMAL
== END 2020-11-09 12:32 | disposition left against medical advice (07) ==
LOC: MW.ED 11:42
DX: Z53.21 Procedure and treatment not carried out due to patient leaving prior to being seen by health care provider (principal)
CPT/HCPCS: 93005

== ENCOUNTER 2021-04-23 03:38 | Emergency (ER) | payer OTHER ==
[2021-04-23] MEDS ORDERED: Lidocaine 1% 5 ML VIAL INJECT ONE (03:43)
[2021-04-23] MEDS ORDERED: Octyl 2-Cyanoacrylate 1 Tube ONE (04:07)
[2021-04-23] MEDS ORDERED: Octyl 2-Cyanoacrylate 1 Tube TOP STA (04:09)
[2021-04-23] MEDS ORDERED: Ketorolac 30 MG/ML SDV IM ONE (04:17)
[2021-04-23 04:29] VITALS: BP 134/95; PULSE 94
== END 2021-04-23 04:28 | disposition home or self-care (01) ==
LOC: MW.ED 03:38
DX: S61.212A Laceration without foreign body of right middle finger without damage to nail, initial encounter (principal); I10 Essential (primary) hypertension; E66.9 Obesity, unspecified; Z68.30 Body mass index [BMI] 30.0-30.9, adult; Z88.0 Allergy status to penicillin; Z88.8 Allergy status to other drugs, medicaments and biological substances; W26.0XXA Contact with knife, initial encounter
CPT/HCPCS: 12001; 96372; 99282; A9270; J1885